=== PATIENT | male | born 1995 | race African-American/Black ===

== ENCOUNTER 2017-07-10 17:54 | Emergency (ER) | payer MEDICAID ==
[~2017-07-10] VITALS: Ht 177.8 cm; Wt 78.0 kg
[2017-07-10] MEDS ORDERED: IBUPROFEN 600MG TABLET PO ONE (19:45)
[2017-07-10] MEDS ORDERED: BACITRACIN ZINC OINT UDPKT TOP ONE (20:00)
[2017-07-10 20:15] VITALS: BP 8/51
== END 2017-07-10 20:24 | disposition home or self-care (01) ==
LOC: ER 18:23
DX: S90.822A Blister (nonthermal), left foot, initial encounter (principal); S90.821A Blister (nonthermal), right foot, initial encounter; F12.10 Cannabis abuse, uncomplicated; X58.XXXA Exposure to other specified factors, initial encounter; Y93.89 Activity, other specified; Y92.89 Other specified places as the place of occurrence of the external cause; Y99.8 Other external cause status
CPT/HCPCS: 99283

== ENCOUNTER 2021-03-18 22:08 | Emergency (ER) | payer MEDICAID ==
[~2021-03-18] VITALS: Ht 182.9 cm; Wt 66.0 kg
[~2021-03-18 22:08] MED LIST: ACET650T37 MT; CLOT15CR27 TP
[2021-03-18] MEDS ORDERED: KETOROLAC 60MG/2ML VIAL IM ONE (23:45)
[2021-03-18 23:47] VITALS: BP 132/86
[2021-03-19] MEDS ORDERED: CLOT15CR27 TP (00:33)
== END 2021-03-19 00:45 | disposition home or self-care (01) ==
LOC: ER 22:08
DX: M79.671 Pain in right foot (principal); B35.3 Tinea pedis; F12.10 Cannabis abuse, uncomplicated; Z79.899 Other long term (current) drug therapy
CPT/HCPCS: 73630; 96372; 99283; J1885

== ENCOUNTER 2023-03-09 17:42 | Emergency (ER) | payer MEDICAID ==
[~2023-03-09] VITALS: Ht 182.9 cm; Wt 63.0 kg
[~2023-03-09 17:42] MED LIST changes: +ACET-3163 MT; -ACET650T37 MT
[2023-03-09 17:46] VITALS: BP 140/74; PULSE 151; RESP 18; TEMP 98.3; O2SAT 97
[2023-03-09 19:51] LABS: BASOPHILS % 0.8 % (0.0-2.0); EOSINOPHILS % 7.3 % (0.0-5.0); HEMATOCRIT. 42.7 % (42.0-52.0); HEMOGLOBIN. 14.1 g/dL (14.0-18.0); MEAN CORPUSCULAR HEMOGLOBIN 27.5 pg (28.0-32.0); MEAN CORPUSCULAR HGB CONC 33.1 g/dL (31.0-37.0); MEAN CORPUSCULAR VOLUME 83.2 fL (80.0-94.0); MEAN PLATELET VOLUME 7.6 fl (7.4-10.4); MONOCYTES % 10.2 % (2.0-8.0); NEUTROPHILS % 55.7 % (40.0-76.0); PLATELET 322 x1000/uL (130-400); RED BLOOD CELL COUNT 5.13 mill/uL (4.7-6.1); RED CELL DISTRIBUTION WIDTH 14.3 % (11.6-14.6); WHITE BLOOD COUNT 7.8 x1000/uL (4.5-11.0)
[2023-03-09 19:56] LABS: CHLORIDE 105 mEq/L (98-107); INDEX HEMOLYSI 1 (1-3); INDEX ICTERIC 1 (1-4); INDEX LIPEMIC 1 (1-3); POTASSIUM 3.4 mEq/L (3.5-5.1); SODIUM 139 mEq/L (136-145)
[2023-03-09 20:05] LABS: ALANINE AMINOTRANSFERASE 31 IU/L (13-61); ASPARTATE AMINOTRANSFERASE 23 IU/L (15-37); BILIRUBIN TOTAL 0.5 mg/dL (0.1-1.0); CALCIUM 9.4 mg/dL (8.5-10.1); CARBON DIOXIDE 29 mEq/L (21-32); CREATININE 0.7 mg/dL (0.6-1.3); GLUCOSE 82 mg/dL (70-105); PROTEIN TOTAL 8.5 g/dL (6.0-8.3); UREA NITROGEN BLOOD 20 mg/dL (7-21)
[2023-03-09] MEDS ORDERED: KETOROLAC 30MG/ML VIAL IM ONE (22:30)
== END 2023-03-10 00:16 | disposition left against medical advice (07) ==
LOC: ER 17:42
DX: L84 Corns and callosities (principal); M79.604 Pain in right leg; F12.90 Cannabis use, unspecified, uncomplicated
CPT/HCPCS: 80053; 85025; 36415; 73552; 73590; 93005; 96372; 99285; J1885; Z7610

== ENCOUNTER 2023-04-13 16:20 | Emergency (ER) | payer MEDICAID ==
[~2023-04-13] VITALS: Ht 182.9 cm; Wt 75.0 kg
[2023-04-13 16:28] VITALS: BP 146/74; PULSE 111; RESP 18; TEMP 98.3; O2SAT 99
[2023-04-13] MEDS ORDERED: TOPUD MT (20:24)
[2023-04-13] MEDS ORDERED: IBUP-1523 MT (20:24)
== END 2023-04-13 20:35 | disposition home or self-care (01) ==
LOC: ER 16:20
DX: B07.0 Plantar wart (principal); F12.10 Cannabis abuse, uncomplicated
CPT/HCPCS: 99281